=== PATIENT | male | born 1965 ===

== ENCOUNTER 2018-01-22 14:36 | Emergency (ER) | payer SELFPAY ==
[2018-01-22 15:12] VITALS: BP 154/113
--- NOTE | 2018-01-22 16:25 | UC ---
Elbow Pain - HPI Summary HPI Summary: 52 yo male was lifting about a 50 pound back pack out of truck it slipped and forcefully externally his arm c/o medial elbow occurred this AM pain has lessened over the coarse of the day intermittent right hand numbness this occurred at work and he is right handed NO PRIOR ELBOW INJ - History of Current Complaint Chief Complaint: UCUpperExtremity Stated Complaint: R ELBOW INJURY Time Seen by Provider: 01/22/18 16:08 Hx Obtained From: Patient Onset/Duration: Hours Severity Initially: Moderate Severity Currently: Mild Pain Intensity: 3 Pain Scale Used: 0-10 Numeric Aggravating Factor(s): Movement, Pulling, Twisting Alleviating Factor(s): Rest Associated Signs And Symptoms: Positive: Numbness/Tingling - brief and only in certain positions - Allergies/Home Medications Allergies/Adverse Reactions: Allergies Allergy/AdvReac Type Severity Reaction Status Date / Time No Known Allergies Allergy Verified 01/22/18 15:12 Home Medications: Home Medications NK [No Home Medications Reported] 01/22/18 [History Confirmed 01/22/18] PMH/Surg Hx/FS Hx/Imm Hx Previously Healthy: Yes Cardiovascular History: Hypertension - not on meds...had appt in one month - Surgical History Surgical History: None - Family History Known Family History: Positive: Hypertension - Social History Alcohol Use: Rare Substance Use Type: None Smoking Status (MU): Never Smoked Tobacco Review of Systems Constitutional: Negative Skin: Negative Eyes: Negative ENT: Negative Respiratory: Negative Cardiovascular: Negative Gastrointestinal: Negative Genitourinary: Negative Motor: Negative Neurovascular: Negative Musculoskeletal: Arthralgia Neurological: Negative Psychological: Negative Is Patient Immunocompromised?: No All Other Systems Reviewed And Are Negative: Yes Physical Exam Triage Information Reviewed: Yes Appearance: Well-Appearing, No Pain Distress, Well-Nourished Vital Signs: Initial Vital Signs Temp 98.7 F 01/22/18 15:09 Pulse 74 01/22/18 15:09 Resp 18 01/22/18 15:09 BP 154/113 01/22/18 15:09 Pulse Ox 98 01/22/18 15:09 Eyes: Positive: Conjunctiva Clear ENT: Positive: Hearing grossly normal. Negative: Nasal congestion, Nasal drainage, Trismus, Muffled voice, Hoarse voice Neck: Positive: Supple, Nontender, No Lymphadenopathy Respiratory: Positive: Lungs clear, Normal breath sounds, No respiratory distress Cardiovascular: Positive: RRR Musculoskeletal: Positive: ROM Intact, No Edema, Other: - slight tenderness medial epicondyle Neurological: Positive: Alert Elbow Pain Course/Dx - Differential Dx/Diagnosis Provider Diagnoses: right elbow tendon strain Discharge - Sign-Out/Discharge Documenting (check all that apply): Patient Departure - Discharge Plan Condition: Stable Disposition: HOME Patient Education Materials: Musculoskeletal Pain (ED) Referrals: Nadia Li MD [Medical Doctor] - 2 Weeks (recheck in 1-2 weeks if not better) Additional Instructions: I think you strained a tendon ice twice daily advil 3-4 4x day with food for pain see your provider in follow up re your BP see orthopedist if elbow not back to normal after your vacation - Billing Disposition and Condition Condition: STABLE Disposition: Home
== END 2018-01-22 16:28 | disposition home or self-care (01) ==
LOC: UCEAST 14:36
DX: S66.811A Strain of other specified muscles, fascia and tendons at wrist and hand level, right hand, initial encounter (principal); I10 Essential (primary) hypertension; X50.0XXA Overexertion from strenuous movement or load, initial encounter; Y92.9 Unspecified place or not applicable
CPT/HCPCS: 99211; G0463